=== PATIENT | male | born 1950 | race Caucasian/White ===

== ENCOUNTER → 2016-11-08 | Outpatient (CLI) | payer BC, OTHER ==
--- NOTE | 2016-11-08 16:00 | RADRPT ---
PROCEDURE: XR left knee. CLINICAL INDICATION: Knee pain TECHNIQUE: AP weightbearing, lateral weight bearing and sunrise views are available for review. COMPARISON: None available FINDINGS: There is mild osteoarthrosis involving the patellofemoral compartment. This is associated with osteo phytosis. There is otherwise normal mineralization, architecture and alignment. No fractures are identified. No osseous lesions are identified. The soft tissues are unremarkable. IMPRESSION: Mild osteoarthrosis involving the patellofemoral compartment. RPTAT: [facility] .Addison Bower MD, MD Date Time Electronically viewed and signed by .Addison Bower MD, on 11/08/2016 16:00 .B/
--- NOTE | 2016-11-09 09:11 | HKNOTE ---
DATE OF SERVICE: 11/08/2016 MAIN COMPLAINT: Pain in left knee. HISTORY OF MAIN COMPLAINT: The patient is a 66-year-old male who complains of pain in his left knee . The patient had operative arthroscopy on his left knee on ____ by Dr. Andrade. He states that after the operation, he "at first thought I was much better." The patient was sent for a cour se of physical therapy which he thought was too aggressive and seemed to aggravate his pain. He con tinued to have pain, and about 3 months later, he resumed physical therapy again, and this did not h elp him very much. Since then, he has had intermittent pain in the knee all the time. He has never been comfortable with the result of his surgery. He is markedly limited in the things he can do. He likes to hike and run and swim. He is not able to do these things. On a bad day, he cannot walk more than 100 feet without stopping. On a good y, he can walk up to a half a mile to three-quarters of a mile. PRESENT COMPLAINTS: The knee does not swell, does not feel unstable. He gets pain every day, but vineet cagle does not get pain with every step that he takes. He does get pain in the lower back for which he has had chiropractic treatments. He has never had a n MRI scan of the spine. He limps some of the time. He uses a cane some of the time (he has one wi th him today). He does not have a shoe lift. He can clip his toenails and tie his shoelaces. PAST ORTHOPEDIC HISTORY: PREVIOUS ORTHOPEDIC OPERATIONS: Arthroscopic surgery of the left knee by Dr. Andrade in 2011. PRIOR CORTISONE INTAKE: None. ALCOHOL INTAKE: "Very little." OTHER JOINT PROBLEMS: Occasional pain, right ankle. BLOOD TESTS FOR ARTHRITIS: No. PRIOR INJURIES TO HIPS OR KNEES: None. 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 PAST MEDICAL HISTORY: Mild asthma. PAST SURGICAL HISTORY: Appendectomy, 1960. Arthroscopic surgery of the left knee, 2011. ALLERGIES: NONE. MEDICATIONS: 1. Montelukast 10 mg daily. 2. Cetirizine 10 mg daily for hay fever. FAMILY HISTORY: Noncontributory. SYSTEMS REVIEW: Entirely negative. HABITS: The patient drinks 4 beers per month. PHYSICAL EXAMINATION: GENERAL: An extremely fit-looking and youthful 66-year-old male. He walks with a cane. VITAL SIGNS: Height 6 feet. Weight 227 pounds. Blood pressure 130/75, temperature 98.4. HIPS: Both hips have a full range of motion without pain. There is no tenderness anywhere around e ither hip. LEFT KNEE: The left knee shows normal alignment. Active and passive extension is 0 degrees. Active and passive flexion lacks 15 degrees (pain on trying to force further). The medial and lateral colla teral ligaments and cruciate ligaments are intact. Marybeth test is negative. Tender over the medial joint line, 1+ effusion. There is 2+ crepitus in the knee, none in the patella. There is no scarri ng or cysts. The patella tracks normally. There is no tenderness on the articular surface of the pat dharmesh or in the patellar groove. The Q angle is normal. IMAGING: Plain x-rays of the left knee obtained today at the [facility] [place] were rev iewed (3 views). These show minimal narrowing of the medial joint space but are otherwise entirely normal. Operative report from Dr. Andrade was obtained. The report dated ____ is reported by Dr. Lee mccann as showing "Extensive degenerative tear on the posterior horn of the medial meniscus extending to the body of the meniscus. This was debrided back to stable edge with a shaver. Probing revealed it was quite stable. The anterior horn had no tear. Medial tibial plateau and medial femoral cond yle looked healthy with no significant chondromalacia. Intercondylar notch was inspected. The ACL and PCL were normal with no evidence of tearing. The lateral compartment was inspected. There was no chondromalacia of the femoral plateau or femoral condyle. The lateral meniscus was completely in tact." DISCUSSION: A 66-year-old male who had operative arthroscopy for a torn medial meniscus in 2011. Vineet cagle has had continuing symptoms since that time. He does not have locking or instability, but he has tenderness over the medial joint line, and the x-rays show that he has narrowing of the medial joint space. The first thing that springs to mind is that he may have a re-tear of the meniscus, but his symptoms are not classic for a torn meniscus. Accordingly, he will be treated as a patient with mild arthri tis in the knee. If the cortisone I give him does not settle his knee down, then will obtain a new MRI with gadolinium. MANAGEMENT: Under sterile conditions, given injection of 2 mL of Kenalog and 5 mL of 2% lidocaine i nto the left knee. If he is not feeling back to "semi normal" within 2 weeks, he will call my mynor Zora thornton, who will order an MRI scan with gadolinium, and he will see me again thereafter. Dictated By: FREDY GARDNER/JUAN Conf#: [id number] DID#: [id number]
== END | disposition home or self-care (01) ==
LOC: HKI 15:32
DX: M25.562 Pain in left knee (principal)
CPT/HCPCS: 20610; 73562; G0463; J3301